=== PATIENT | female | born 1945 | race Caucasian/White ===

== ENCOUNTER 2017-08-10 22:17 | Inpatient (IN) | payer OTHER, MEDICAID ==
[2017-08-11] MEDS: ZOFRAN INJ 4 MG VIAL IVP PRN (00:13)
[2017-08-11 00:20] LABS: BASOPHILS # (AUTO) 0.1 X10^3/uL (0.0-0.1); BASOPHILS % (AUTO) 0.6 % (0.2-1.0); EOSINOPHILS % (AUTO) 0.1 % (0.9-2.9); HEMATOCRIT 34.8 % (36.0-47.0); HEMOGLOBIN 11.8 g/dL (12.0-16.0); LYMPHOCYTES # (AUTO) 0.7 X10^3/uL (1.3-2.9); LYMPHOCYTES % (AUTO) 4.9 % (21.0-51.0); MEAN CORPUSCULAR HEMOGLOBIN 31.1 pg (27.0-34.0); MEAN CORPUSCULAR VOLUME 91.6 fL (80.0-100.0); MEAN PLATELET VOLUME 8.1 fL (7.4-11.0); MONOCYTES # (AUTO) 0.6 x10^3/uL (0.3-0.8); MONOCYTES % (AUTO) 4.7 % (0.0-13.0); NEUTROPHILS % (AUTO) 89.7 % (42.0-75.0); PLATELET COUNT 272 X10^3/uL (150.0-450.0); RED CELL DISTRIBUTION WIDTH 12.5 % (11.6-16.5); WHITE BLOOD COUNT 13.4 X10^3/uL (3.6-10.0)
--- NOTE | 2017-08-11 00:35 | RAD ---
Chest, one-view Indication: Preoperative evaluation for left hip fracture Comparison: None Findings: Heart size is normal. No focal consolidation, significant effusion or pneumothorax is ident ified. No acute osseous abnormality is seen. Impression: No acute cardiopulmonary abnormality. Reported By:
[2017-08-11 01:31] LABS: ALANINE AMINOTRANSFERASE 129 Units/L (12-78); ALBUMIN 3.6 g/dL (3.4-5.0); ALKALINE PHOSPHATASE 67 Units/L (46-116); ASPARTATE AMINO TRANSFERASE 173 Units/L (15-37); BLOOD UREA NITROGEN 16 mg/dL (7-18); CALCIUM 8.7 mg/dL (8.5-10.1); CHLORIDE 97 mmol/L (98-107); COR NA(FOR HYPERGLY) 134 mmol/L (136-145); CREATININE 0.64 mg/dL (0.55-1.02); SODIUM 133 mmol/L (136-145); TOTAL PROTEIN 7.4 g/dL (6.4-8.2); eGFR BLACK RACES > 60 (>60); eGFR NON BLACK RACES > 60 (>60)
[2017-08-11] MEDS: NS 1000 ML 1,000 ML IV SCH ×3 (01:52→18:20)
[2017-08-11] MEDS: TORADOL 15 MG VIAL IVP SCH ×3 (01:53→13:52)
[2017-08-11] MEDS ORDERED: MARCAINE 0.25% INJ ONE (08:28)
[2017-08-11] MEDS ORDERED: XYLOCAINE 1% and EPINEPHRINE 1:100,000 ONE (08:28)
[2017-08-11] MEDS ORDERED: HYDROGEN PEROXIDE 3% ONE (08:28)
[2017-08-11] MEDS ORDERED: BACITRACIN VIAL ONE (08:29)
[2017-08-11] MEDS ORDERED: POLYMYXIN B SULFATE ONE (08:49)
--- NOTE | 2017-08-11 09:08 | RAD ---
HISTORY: Left hip pain status post fall, preop examination Study: Two views left hip Comparison: None Findings: There is a mildly impacted and displaced left transcervical femoral neck fracture with slight varus a ngulation. There is no dislocation. No destructive osseous lesions are seen. IMPRESSION: Transcervical left femoral neck fracture. Reported By:
[2017-08-11] MEDS ORDERED: LR 1000 ML IV 1,000 ML IV ONE (09:18)
[2017-08-11] MEDS ORDERED: ANCEF 1 GM IV PREMIX* 1 GM/50 ML BAG IV ONE (09:18)
[2017-08-11] MEDS ORDERED: FENTANYL INJ 100 mcg ONE (09:19)
[2017-08-11 09:24] VITALS: BMI 21.5
[2017-08-11] MEDS ORDERED: KETALAR ONE (09:25)
[2017-08-11] MEDS ORDERED: SUPRANE IN ONE (09:40)
[2017-08-11] MEDS ORDERED: XYLOCAINE 2 % (PLAIN) ONE (09:40)
[2017-08-11] MEDS ORDERED: NEO-SYNEPHRINE INJ ONE (09:40)
[2017-08-11] MEDS ORDERED: ROBINUL ONE (09:40)
[2017-08-11] MEDS ORDERED: QUELICIN (OR ANECTINE) ONE (09:40)
[2017-08-11] MEDS ORDERED: NEOSTIGMINE INJ ONE (09:40)
[2017-08-11] MEDS ORDERED: DIPRIVAN VIAL ONE (09:40)
[2017-08-11] MEDS ORDERED: VERSED ONE (09:40)
[2017-08-11] MEDS ORDERED: NORCURON INJ 10 MG VIAL ONE (09:40)
[2017-08-11] MEDS ORDERED: EPHEDRINE SULFATE INJ ONE (09:40)
[2017-08-11] MEDS ORDERED: LTA KIT LIDOCAINE 4% ONE (09:40)
--- NOTE | 2017-08-11 09:51 | DR.CONSULT ---
Consult - Consultation for Day of: Date: 08/11/17 - Chief Complaint Chief Complaint: left hip fracture. - Allergies Allergies/Adverse Reactions: Allergies Allergy/AdvReac Type Severity Reaction Status Date / Time No Known Drug Allergies Allergy Verified 08/10/17 23:44 - History of Present Illness History of Present Illness: fall at home yesterday. unable to walk after the fall. was brought to the ER. XR shoed left hip fracture. - Past Surgical History Surgical History: Cholecystectomy, Ortho Surgery - Social History Does patient currently use any type of tobacco product: No Have you used tobacco products in the last 12 months: No Does any household member use tobacco: No Alcohol Use: None Drug Use: None - Physical Exam Vital Signs: Temperature 98.1 F Pulse Rate [Left Brachial] 71 Respiratory Rate 19 Blood Pressure [Left Arm] 135/64 O2 Sat by Pulse Oximetry 96 - Plan Plan: left hip bipolar
[2017-08-11] MEDS ORDERED: FENTANYL INJ 250 mcg ONE (09:52)
[2017-08-11] MEDS ORDERED: DIPRIVAN VIAL 20 ML ONE (10:20)
[2017-08-11] MEDS ORDERED: NS IRRIGATION 1000 ML 1,000 ML with BACITRACIN VIAL 50,000 UNT IR ONE ×2 (10:38)
[2017-08-11] MEDS ORDERED: NS IRRIGATION 3000 ML 3,000 ML with BACITRACIN VIAL 50,000 UNT IR ONE ×4 (10:38)
[2017-08-11] MEDS ORDERED: NS 1000 ML 1,000 ML ONE (11:45)
[2017-08-11] MEDS: BACTROBAN OINT ONE ×3 (12:10→12:53)
[2017-08-11] MEDS: MARCAINE 0.25% INJ ONE ×2 (12:32→12:53)
[2017-08-11] MEDS ORDERED: DILAUDID INJ ONE (12:38)
[2017-08-11] MEDS ORDERED: MORPHINE SULFATE PCA 30 MG IV PRN (13:10)
[2017-08-11] MEDS ORDERED: BENADRYL INJ 50 MG VIAL IVP PRN (13:15)
[2017-08-11] MEDS ORDERED: PHENERGAN INJ 25 MG IVP PRN (13:15)
[2017-08-11] MEDS ORDERED: DILAUDID INJ IVP PRN (13:15)
[2017-08-11] MEDS ORDERED: ZOFRAN INJ 4 MG VIAL IVP PRN (13:15)
--- NOTE | 2017-08-11 14:12 | RAD ---
Examination: Left hip, three views History: Postop Comparison reference 08/11/2017 Findings: Arthroplasty components are now present, related anatomically. There is no evidence for dis location, fracture or hardware abnormality. The expected postsurgical soft tissue changes are observe d. Impression: Interval performance left YESSI, no postoperative complication identified. Reported By:
[2017-08-11] MEDS: ANCEF 1 GM IV PREMIX* 1 GM/50 ML BAG IV SCH ×2 (14:31→21:05)
[2017-08-11] MEDS: LOVENOX INJ 30 MG SYR SC SCH (20:57)
[2017-08-12] MEDS: ANCEF 1 GM IV PREMIX* 1 GM/50 ML BAG IV SCH ×2 (03:39→09:10)
[2017-08-12] MEDS: NS 1000 ML 1,000 ML IV SCH ×2 (05:51→22:29)
[2017-08-12 05:56] LABS: BLOOD UREA NITROGEN 9 mg/dL (7-18); CALCIUM 7.8 mg/dL (8.5-10.1); CARBON DIOXIDE 27.1 mmol/L (21-32); CHLORIDE 100 mmol/L (98-107); CREATININE 0.62 mg/dL (0.55-1.02); SODIUM 133 mmol/L (136-145); eGFR BLACK RACES > 60 (>60); eGFR NON BLACK RACES > 60 (>60)
[2017-08-12 06:14] LABS: BASOPHILS # (AUTO) 0.1 X10^3/uL (0.0-0.1); BASOPHILS % (AUTO) 0.9 % (0.2-1.0); EOSINOPHILS # (AUTO) 0.1 x10^3/uL (0.0-0.2); HEMATOCRIT 31.4 % (36.0-47.0); HEMOGLOBIN 11.1 g/dL (12.0-16.0); LYMPHOCYTES # (AUTO) 0.8 X10^3/uL (1.3-2.9); LYMPHOCYTES % (AUTO) 9.4 % (21.0-51.0); MEAN CORPUSCULAR HEMOGLOBIN 32.7 pg (27.0-34.0); MEAN CORPUSCULAR HGB CONC 35.4 g/dL (33.0-35.0); MEAN CORPUSCULAR VOLUME 92.4 fL (80.0-100.0); MEAN PLATELET VOLUME 8.8 fL (7.4-11.0); MONOCYTES # (AUTO) 0.7 x10^3/uL (0.3-0.8); MONOCYTES % (AUTO) 7.3 % (0.0-13.0); NEUTROPHILS # (AUTO) 7.3 x10^3/uL (2.2-4.8); NEUTROPHILS % (AUTO) 81.4 % (42.0-75.0); PLATELET COUNT 184 X10^3/uL (150.0-450.0); RED CELL DISTRIBUTION WIDTH 12.9 % (11.6-16.5)
--- NOTE | 2017-08-12 07:58 | US ---
HISTORY: Elevated liver function tests Study: Hepatic sonogram Comparison: None Technique: Multiple grayscale sonographic images were obtained. Findings: The liver was normal in size and configuration and without evidence for cyst, mass, or biliary ductal dilatation. The patient appears to be status post cholecystectomy. The common duct measured 4.5 mm. IMPRESSION: No significant abnormality identified Reported By:
[2017-08-12] MEDS: LOVENOX INJ 30 MG SYR SC SCH ×2 (09:11→20:08)
[2017-08-12] MEDS: GLUCOPHAGE XR PO SCH ×2 (10:17→20:09)
[2017-08-12] MEDS: ASPIRIN EC 81 MG PO SCH (10:18)
[2017-08-12] MEDS: ZESTRIL TAB 10 MG PO SCH (10:18)
[2017-08-12] MEDS: NORVASC TAB 5 MG PO SCH (10:18)
[2017-08-12] MEDS: ZOLOFT PO SCH (10:18)
[2017-08-12] MEDS: FLONASE NASAL SPRAY ENOSTRIL SCH ×2 (10:19→20:08)
[2017-08-12] MEDS: ZOFRAN INJ 4 MG VIAL IVP PRN (12:13)
[2017-08-12] MEDS ORDERED: MORPHINE SULFATE INJ 2 MG INJ IVP PRN (13:58)
[2017-08-12] MEDS: PERCOCET TAB 5/325 MG PO PRN (20:09)
[2017-08-13 06:06] LABS: BASOPHILS # (AUTO) 0.1 X10^3/uL (0.0-0.1); BASOPHILS % (AUTO) 0.7 % (0.2-1.0); EOSINOPHILS # (AUTO) 0.1 x10^3/uL (0.0-0.2); EOSINOPHILS % (AUTO) 0.9 % (0.9-2.9); HEMATOCRIT 26.5 % (36.0-47.0); HEMOGLOBIN 9.5 g/dL (12.0-16.0); LYMPHOCYTES # (AUTO) 0.9 X10^3/uL (1.3-2.9); LYMPHOCYTES % (AUTO) 8.4 % (21.0-51.0); MEAN CORPUSCULAR HGB CONC 35.9 g/dL (33.0-35.0); MEAN CORPUSCULAR VOLUME 91.9 fL (80.0-100.0); MEAN PLATELET VOLUME 8.8 fL (7.4-11.0); MONOCYTES # (AUTO) 0.8 x10^3/uL (0.3-0.8); MONOCYTES % (AUTO) 7.7 % (0.0-13.0); NEUTROPHILS # (AUTO) 8.7 x10^3/uL (2.2-4.8); NEUTROPHILS % (AUTO) 82.3 % (42.0-75.0); PLATELET COUNT 159 X10^3/uL (150.0-450.0); RED BLOOD COUNT 2.89 X10^6/uL (3.5-5.4); RED CELL DISTRIBUTION WIDTH 13.1 % (11.6-16.5); WHITE BLOOD COUNT 10.6 X10^3/uL (3.6-10.0)
[2017-08-13 06:26] LABS: BLOOD UREA NITROGEN 9 mg/dL (7-18); CALCIUM 7.8 mg/dL (8.5-10.1); CARBON DIOXIDE 26.7 mmol/L (21-32); CHLORIDE 100 mmol/L (98-107); CREATININE 0.48 mg/dL (0.55-1.02); SODIUM 132 mmol/L (136-145); eGFR BLACK RACES > 60 (>60); eGFR NON BLACK RACES > 60 (>60)
[2017-08-13] MEDS: PERCOCET TAB 5/325 MG PO PRN ×4 (07:11→20:19)
[2017-08-13] MEDS ORDERED: PHARMACY CONSULT - DOSE _____ XX SCH (08:00)
[2017-08-13] MEDS: LOVENOX INJ 30 MG SYR SC SCH ×2 (09:15→20:17)
[2017-08-13] MEDS: ASPIRIN EC 81 MG PO SCH (09:16)
[2017-08-13] MEDS: NORVASC TAB 5 MG PO SCH (09:16)
[2017-08-13] MEDS: ZOLOFT PO SCH (09:17)
[2017-08-13] MEDS: GLUCOPHAGE XR PO SCH ×2 (09:18→20:18)
[2017-08-13] MEDS: ZESTRIL TAB 10 MG PO SCH (09:18)
[2017-08-13] MEDS: FLONASE NASAL SPRAY ENOSTRIL SCH ×2 (09:19→20:18)
[2017-08-13] MEDS ORDERED: SODIUM CHL HYPERTONIC ** 3% ** 500 ML IV ONE (10:00)
[2017-08-13] MEDS: NS 1000 ML 1,000 ML IV SCH (12:32)
--- NOTE | 2017-08-13 13:36 | PCM.PROG ---
Progress Note - Progress Note for Day of Date: 08/13/17 - Subjective Subjective: postop day 2. Afebrile, stable vitals. Hemoglobin reduced to 9.5. Making good progress with physical therapy. Currently on by mouth pain meds for pain control, well controlled. Dressing clean and dry. Surgical incision clean and dry. - Past Medical Family Social History Allergies: Allergies No Known Drug Allergies Allergy (Verified 08/10/17 23:44) - Vital Signs and I&O's Vital Signs: Temperature 98.7 F Pulse Rate [Left Brachial] 86 Pulse Rate 75 Respiratory Rate 20 Blood Pressure [Left Arm] 137/60 Blood Pressure 100/50 O2 Sat by Pulse Oximetry 96 Intake and Output: Intake & Output 08/11/17 08/12/17 08/13/17 08/14/17 11:59 11:59 11:59 11:59 Intake Total 370 9632 2489 Output Total 810 1643 4101 [facility] -[phone] -1947 -510 - Physical Exam Speech Pattern: Clear, Appropriate - Laboratory and Diagnostics Result Diagrams: 08/13/17 05:10 08/13/17 05:10 Labs: Laboratory WBC 10.6 X10^3/uL (3.6-10.0) H 08/13/17 05:10 RBC 2.89 X10^6/uL (3.5-5.4) L 08/13/17 05:10 Hgb 9.5 g/dL (12.0-16.0) L 08/13/17 05:10 Hct 26.5 % (36.0-47.0) L 08/13/17 05:10 MCV 91.9 fL (80.0-100.0) 08/13/17 05:10 MCH 33.0 pg (27.0-34.0) 08/13/17 05:10 MCHC 35.9 g/dL (33.0-35.0) H 08/13/17 05:10 RDW 13.1 % (11.6-16.5) 08/13/17 05:10 Plt Count 159 X10^3/uL (150.0-450.0) 08/13/17 05:10 MPV 8.8 fL (7.4-11.0) 08/13/17 05:10 Neut % 82.3 % (42.0-75.0) H 08/13/17 05:10 Lymph % 8.4 % (21.0-51.0) L 08/13/17 05:10 [place] % 7.7 % (0.0-13.0) 08/13/17 05:10 Eos % 0.9 % (0.9-2.9) 08/13/17 05:10 Baso % 0.7 % (0.2-1.0) 08/13/17 05:10 Neut # 8.7 x10^3/uL (2.2-4.8) H 08/13/17 05:10 Lymph # 0.9 X10^3/uL (1.3-2.9) L 08/13/17 05:10 [place] # 0.8 x10^3/uL (0.3-0.8) 08/13/17 05:10 Eos # 0.1 x10^3/uL (0.0-0.2) 08/13/17 05:10 Baso # 0.1 X10^3/uL (0.0-0.1) 08/13/17 05:10 Absolute Nucleated RBC 0.0 /100WBC 08/13/17 05:10 Sodium 132 mmol/L (136-145) L 08/13/17 05:10 Corrected Sodium TNP 08/13/17 05:10 Potassium 4.0 mmol/L (3.5-5.1) 08/13/17 05:10 Chloride 100 mmol/L (98-107) 08/13/17 05:10 Carbon Dioxide 26.7 mmol/L (21-32) 08/13/17 05:10 BUN 9 mg/dL (7-18) 08/13/17 05:10 Creatinine 0.48 mg/dL (0.55-1.02) L 08/13/17 05:10 Est GFR (MDRD) Af Amer > 60 (>60) 08/13/17 05:10 Est GFR (MDRD) Non-Af > 60 (>60) 08/13/17 05:10 Glucose 90 mg/dL (65-99) 08/13/17 05:10 POC Glucose (mg/dL) 100 mg/dL (65-99) H 08/13/17 11:03 Calcium 7.8 mg/dL (8.5-10.1) L 08/13/17 05:10 Corrected Calcium TNP 08/11/17 00:03 Total Bilirubin 0.50 mg/dL (0.2-1.0) 08/11/17 00:03 AST 173 Units/L (15-37) H 08/11/17 00:03 ALT 129 Units/L (12-78) H 08/11/17 00:03 Alkaline Phosphatase 67 Units/L (46-116) 08/11/17 00:03 Total Protein 7.4 g/dL (6.4-8.2) 08/11/17 00:03 Albumin 3.6 g/dL (3.4-5.0) 08/11/17 00:03 Globulin 3.8 g/dL (2.5-4.5) 08/11/17 00:03 Albumin/Globulin Ratio 0.9 Ratio (1.1-2.1) L 08/11/17 00:03 Blood Type A POSITIVE 08/11/17 00:03 Antibody Screen Negative 08/11/17 00:03 Crossmatch See Detail 08/11/17 00:03 - Plan (1) Fracture, pathologic, femur, neck Status: Acute Qualifiers: Encounter type: subsequent encounter Laterality: left Fracture healing: with routine healing Qualified Code(s): M84.452D - Pathological fracture, left femur, subsequent encounter for fracture with routine healing Plan: 1. Continue physical therapy-complete weightbearing, posterior hip precautions. 2. Pain management with by mouth pain meds. 3. Dr. House might consider transfusion for her low hemoglobin. 4. Plan on discharge. 5. Regular wound check
--- NOTE | 2017-08-13 14:29 | OR.GENERIC ---
Post-Op Note Generic - Post-Op Note Operative Report: preoperative diagnosis-LEFT hip fracture neck of femur, pathological, displaced , osteoporotic, transcervical Postoperative diagnosis-LEFT hip fracture neck of femur, pathological, osteoporotic, displaced, transcervical Procedure-LEFT hip bipolar hemiarthroplasty. Implant used-[place] accolade ii Femur size 3, 127, 41 mm head, +8 offset [id number] female, sustained a LEFT hip fracture after a trivial fall. Seen in the emergency room and diagnosed with a fracture neck of femur , admitted to Medical services and a consult placed. History reviewed, x-rays and CT showed a displaced pathological transcortical fracture involving the LEFT hip fracture neck of femur, no significant sinus of osteoarthritis, fairly advanced osteoporosis with Buenrostro index 4. Natural history treatment discussions done with the family. Keeping in mind of her age and the fracture anatomy and hemiarthroplasty was offered. Patient and the family consented for the procedure. They were taken through the pre-and post operative period and instructions. Procedure was explained in detail to them. Complications including but not limited to infection, neurovascular damage, progression of hip arthritis, LEFT hip pain and stiffness, periprosthetic fracture, loosening of the implant, dislocation, need for further procedures discussed with her as well as the family. They understood and verbalized same. Preop- LEFT and marked in the preoperative holding area. Patient got an epidural block by the anesthesia team. She got the appropriate antibiotic. Consent was again revisited with the patient and the patient signed consent. Procedure-patient was brought to the operating room and placed supine on the operating table. General anesthesia was induced and endotracheal intubation was completed successfully. Patient placed on the RIGHT lateral position on a pegboard. Axillary roll placed, neck maintained in neutral position, pegs placed without any obstruction to the range or the field, SCDs and MEME hose applied on the nonoperative limp, Shrestha catheter placed. LEFT limb was prepped and draped. Surface landmarks marked out, curvilinear incision centeringthe posterioone third of the trochanter. Dissection carried down through the subcutis tissue to expose the gluteus dustin was the tensor fascia patel. Incision made in the tensor fascia patel and gluteus muscles split along the fibers. Charnley retractor placed at this time. Fat surrounding the short rotators released off the short rotators with a blunt sweeping this off the Ray- David. Sciatic nerve identified and was protected throughout the procedure. Retention stitches were placed and the short rotators with Ethibond. Short rotators were released off the posterior femoral cortex, the rotators and the capsule were taken down as a single layer. Hip joint exposed. Fracture site exposed, fracture found to be transcervical displaced, comminuted Femoral head extracted with a corkscrew and measured to be 41. Acetabulum was exposed after completing capsulotomy anteriorly and inferiorly. Blunt retractors were placed posteriorly inferiorly and anteriorly. Acetabulum was inspected, ligamentum teres excised. There is no signs of arthritis noted in the acetabulum. Retractors were taken out around the acetabulum and they were placed in the inferior neck. A double-pronged was used to elevate the femur. The lesser trochanter identified and osteotomy planned about 2 cm from the top of the lesser trochanter. Neck osteotomy completed with the help of oscillating saw. The femoral canal was opened with an opening reamer. An box osteotome was used to lateralize the entry. Sequential broaching started with size 0. Proceeded to size 3 which was found to be a good fit. Calcar planer was used to plane the calcar. Appropriate anteversion was dialed into the proximal 3. Trialing was done with size 41 and 0, +4 and +8 offset. The hip was stable to shuck test, range of motion to her in 110 and external rotation of 45. She had good extension. After trialing we decided to proceed with a size 3, 41 head with +8 offset. Thorough irrigation was done of the wound as well as the intramedullary part of the femur. The definitive prosthesis was driven into the femur. The bipolar head was assembled on the back table. Trunion was cleaned and wiped dry. Bipolar head placed on the trunnion and malleted gently to lock it in place, tested and found to be locked. The hip reduced and again was arranged to found to be very stable. The rotators, capsule, muscle as well as the subcutaneous breast tissue was infiltrated with quarter percent Marcaine with epinephrine. The rotators and the capsule complex was repaired by passing the Ethibond through transosseous sutures and approximated with limp in internal rotation and abduction. The repair was found to be stable even with the range of motion of the hip. The rest of the wound was closed in layers. No drain was used as good hemostasis was maintained. Sterile dressing was applied. An abduction pillow was placed. Patient was woken up from the surgery and extubated successfully. She was afebrile and stable vitals when she was shifted to the PACU. Patient was not of much pain and was able to move her toes and ankle on the operative side. She had good posterior tibial as well as dorsalis pedis pulse. Her limb length was found to be equal. Postoperative x-ray showed a well placed and aligned hip processes. No complications were noted. The family was briefed about the surgery. Again discussed with him about postoperative instructions. Especially posterior hip precautions.
[2017-08-13 22:32] LABS: HEPATITIS A ANTIBODY IGM Negative (Negative)
[2017-08-14] MEDS: NS 1000 ML 1,000 ML IV SCH (02:13)
[2017-08-14 05:44] LABS: BLOOD UREA NITROGEN 17 mg/dL (7-18); CALCIUM 7.9 mg/dL (8.5-10.1); CARBON DIOXIDE 26.7 mmol/L (21-32); CHLORIDE 101 mmol/L (98-107); CREATININE 0.63 mg/dL (0.55-1.02); SODIUM 132 mmol/L (136-145); eGFR BLACK RACES > 60 (>60); eGFR NON BLACK RACES > 60 (>60)
[2017-08-14 06:10] LABS: BASOPHILS # (AUTO) 0.1 X10^3/uL (0.0-0.1); BASOPHILS % (AUTO) 0.9 % (0.2-1.0); EOSINOPHILS # (AUTO) 0.2 x10^3/uL (0.0-0.2); EOSINOPHILS % (AUTO) 2.3 % (0.9-2.9); HEMATOCRIT 21.7 % (36.0-47.0); HEMOGLOBIN 7.7 g/dL (12.0-16.0); LYMPHOCYTES # (AUTO) 0.9 X10^3/uL (1.3-2.9); MEAN CORPUSCULAR HEMOGLOBIN 32.4 pg (27.0-34.0); MEAN CORPUSCULAR HGB CONC 35.4 g/dL (33.0-35.0); MEAN CORPUSCULAR VOLUME 91.6 fL (80.0-100.0); MEAN PLATELET VOLUME 9.1 fL (7.4-11.0); MONOCYTES # (AUTO) 0.6 x10^3/uL (0.3-0.8); MONOCYTES % (AUTO) 6.7 % (0.0-13.0); NEUTROPHILS # (AUTO) 6.8 x10^3/uL (2.2-4.8); NEUTROPHILS % (AUTO) 79.1 % (42.0-75.0); PLATELET COUNT 144 X10^3/uL (150.0-450.0); RED BLOOD COUNT 2.37 X10^6/uL (3.5-5.4); RED CELL DISTRIBUTION WIDTH 12.8 % (11.6-16.5); WHITE BLOOD COUNT 8.6 X10^3/uL (3.6-10.0)
[2017-08-14 06:53] LABS: HEPATITIS B CORE IGM Negative (Negative); HEPATITIS B SURFACE ANTIGEN Negative (Negative)
[2017-08-14 08:06] LABS: PLATELET MORPHOLOGY COMMENT NORMAL (NORMAL)
[2017-08-14] MEDS ORDERED: BUTT CREAM (COMPOUND) TOP PRN (08:30)
[2017-08-14] MEDS: GLUCOPHAGE XR PO SCH ×2 (08:54→21:58)
[2017-08-14] MEDS: NORVASC TAB 5 MG PO SCH (08:54)
[2017-08-14] MEDS: ASPIRIN EC 81 MG PO SCH (08:56)
[2017-08-14] MEDS: ZESTRIL TAB 10 MG PO SCH (08:56)
[2017-08-14] MEDS: LOVENOX INJ 30 MG SYR SC SCH ×2 (08:56→21:58)
[2017-08-14] MEDS: FLONASE NASAL SPRAY ENOSTRIL SCH ×2 (08:58→21:57)
[2017-08-14] MEDS: ZOLOFT PO SCH (08:58)
[2017-08-14] MEDS ORDERED: NS 500 ML IV 500 ML IV ONE ×2 (09:06→13:52)
[2017-08-14] MEDS ORDERED: PHARMACY CONSULT - DOSE _____ XX SCH (10:00)
[2017-08-14] MEDS: PERCOCET TAB 5/325 MG PO PRN (11:48)
[2017-08-14 18:32] LABS: HEMATOCRIT 31.8 % (36.0-47.0); HEMOGLOBIN 11.2 g/dL (12.0-16.0)
[2017-08-14 18:42] LABS: BLOOD UREA NITROGEN 14 mg/dL (7-18); CALCIUM 8.1 mg/dL (8.5-10.1); CARBON DIOXIDE 27.2 mmol/L (21-32); CHLORIDE 100 mmol/L (98-107); CREATININE 0.56 mg/dL (0.55-1.02); SODIUM 133 mmol/L (136-145); eGFR BLACK RACES > 60 (>60); eGFR NON BLACK RACES > 60 (>60)
[2017-08-14] MEDS ORDERED: SODIUM CHL HYPERTONIC ** 3% ** 500 ML IV ONE (20:00)
[2017-08-14] MEDS ORDERED: PHARMACY COMMENT IV SCH (21:30)
[2017-08-15] MEDS: PERCOCET TAB 5/325 MG PO PRN ×4 (02:34→21:04)
[2017-08-15 05:44] LABS: BASOPHILS # (AUTO) 0.1 X10^3/uL (0.0-0.1); BASOPHILS % (AUTO) 1.4 % (0.2-1.0); EOSINOPHILS # (AUTO) 0.2 x10^3/uL (0.0-0.2); EOSINOPHILS % (AUTO) 2.4 % (0.9-2.9); HEMATOCRIT 28.6 % (36.0-47.0); HEMOGLOBIN 10.1 g/dL (12.0-16.0); MEAN CORPUSCULAR HEMOGLOBIN 31.4 pg (27.0-34.0); MEAN CORPUSCULAR HGB CONC 35.3 g/dL (33.0-35.0); MEAN CORPUSCULAR VOLUME 89.1 fL (80.0-100.0); MEAN PLATELET VOLUME 9.1 fL (7.4-11.0); MONOCYTES # (AUTO) 0.7 x10^3/uL (0.3-0.8); NEUTROPHILS # (AUTO) 5.3 x10^3/uL (2.2-4.8); NEUTROPHILS % (AUTO) 73.2 % (42.0-75.0); PLATELET COUNT 193 X10^3/uL (150.0-450.0); RED BLOOD COUNT 3.21 X10^6/uL (3.5-5.4); WHITE BLOOD COUNT 7.3 X10^3/uL (3.6-10.0)
[2017-08-15 06:15] LABS: ALANINE AMINOTRANSFERASE 75 Units/L (12-78); ALBUMIN 1.8 g/dL (3.4-5.0); ALKALINE PHOSPHATASE 62 Units/L (46-116); ASPARTATE AMINO TRANSFERASE 44 Units/L (15-37); BLOOD UREA NITROGEN 11 mg/dL (7-18); CHLORIDE 104 mmol/L (98-107); COR CA(FOR HYPOALB) 9.8 mg/dL (8.5-10.1); CREATININE 0.53 mg/dL (0.55-1.02); SODIUM 138 mmol/L (136-145); TOTAL PROTEIN 5.5 g/dL (6.4-8.2); eGFR BLACK RACES > 60 (>60); eGFR NON BLACK RACES > 60 (>60)
[2017-08-15] MEDS: NS 1000 ML 1,000 ML IV SCH ×2 (06:29→21:03)
[2017-08-15] MEDS: LOVENOX INJ 30 MG SYR SC SCH ×2 (09:30→21:05)
[2017-08-15] MEDS: ZOLOFT PO SCH (09:31)
[2017-08-15] MEDS: GLUCOPHAGE XR PO SCH ×2 (09:32→21:03)
[2017-08-15] MEDS: ASPIRIN EC 81 MG PO SCH (09:33)
[2017-08-15] MEDS: NORVASC TAB 5 MG PO SCH (09:33)
[2017-08-15] MEDS: FLONASE NASAL SPRAY ENOSTRIL SCH ×2 (09:36→21:05)
[2017-08-16 06:00] LABS: ALANINE AMINOTRANSFERASE 103 Units/L (12-78); ALBUMIN 2.1 g/dL (3.4-5.0); ALKALINE PHOSPHATASE 105 Units/L (46-116); ASPARTATE AMINO TRANSFERASE 101 Units/L (15-37); BLOOD UREA NITROGEN 9 mg/dL (7-18); CALCIUM 8.2 mg/dL (8.5-10.1); CARBON DIOXIDE 28.6 mmol/L (21-32); CHLORIDE 99 mmol/L (98-107); COR CA(FOR HYPOALB) 9.7 mg/dL (8.5-10.1); CREATININE 0.53 mg/dL (0.55-1.02); SODIUM 136 mmol/L (136-145); eGFR BLACK RACES > 60 (>60); eGFR NON BLACK RACES > 60 (>60)
[2017-08-16] MEDS ORDERED: K-RIDER 10 MEQ/NS 100 ML 10 MEQ/100 ML BAG IV PRN (06:24)
[2017-08-16] MEDS ORDERED: POTASSIUM CHLORIDE LIQ 20 MEQ UDC PO PRN (06:24)
[2017-08-16] MEDS ORDERED: MAG-OX TAB PO PRN (06:24)
[2017-08-16] MEDS ORDERED: MAGNESIUM SULFATE 1 GM/100 mL PREMIX 1 GM/100 ML BAG IV PRN (06:24)
[2017-08-16] MEDS ORDERED: K-LYTE EFFERVESCENT PO PRN (06:24)
[2017-08-16] MEDS ORDERED: POTASSIUM CHL 40 MEQ/NS 0.45% 500 ML IV PRN (06:24)
[2017-08-16] MEDS ORDERED: POTASSIUM CHL 60 MEQ/NS 0.45% 500 ML IV PRN (06:24)
[2017-08-16 06:26] LABS: BASOPHILS # (AUTO) 0.1 X10^3/uL (0.0-0.1); BASOPHILS % (AUTO) 1.4 % (0.2-1.0); EOSINOPHILS # (AUTO) 0.2 x10^3/uL (0.0-0.2); EOSINOPHILS % (AUTO) 2.6 % (0.9-2.9); HEMATOCRIT 30.3 % (36.0-47.0); HEMOGLOBIN 10.7 g/dL (12.0-16.0); LYMPHOCYTES # (AUTO) 0.6 X10^3/uL (1.3-2.9); LYMPHOCYTES % (AUTO) 9.1 % (21.0-51.0); MEAN CORPUSCULAR HEMOGLOBIN 30.8 pg (27.0-34.0); MEAN CORPUSCULAR HGB CONC 35.2 g/dL (33.0-35.0); MEAN CORPUSCULAR VOLUME 87.7 fL (80.0-100.0); MEAN PLATELET VOLUME 8.7 fL (7.4-11.0); MONOCYTES # (AUTO) 0.7 x10^3/uL (0.3-0.8); MONOCYTES % (AUTO) 10.3 % (0.0-13.0); NEUTROPHILS # (AUTO) 5.3 x10^3/uL (2.2-4.8); NEUTROPHILS % (AUTO) 76.6 % (42.0-75.0); PLATELET COUNT 245 X10^3/uL (150.0-450.0); RED BLOOD COUNT 3.46 X10^6/uL (3.5-5.4); RED CELL DISTRIBUTION WIDTH 14.2 % (11.6-16.5); WHITE BLOOD COUNT 6.9 X10^3/uL (3.6-10.0)
[2017-08-16] MEDS: PERCOCET TAB 5/325 MG PO PRN ×3 (07:31→23:48)
[2017-08-16] MEDS: FLONASE NASAL SPRAY ENOSTRIL SCH ×2 (09:00→20:19)
[2017-08-16] MEDS: LOVENOX INJ 30 MG SYR SC SCH ×2 (09:29→20:19)
[2017-08-16] MEDS: ASPIRIN EC 81 MG PO SCH (09:30)
[2017-08-16] MEDS: NORVASC TAB 5 MG PO SCH (09:30)
[2017-08-16] MEDS: ZOLOFT PO SCH (09:30)
[2017-08-16] MEDS: GLUCOPHAGE XR PO SCH ×2 (09:30→20:19)
[2017-08-17] MEDS: NS 1000 ML 1,000 ML IV SCH ×2 (00:15→06:06)
[2017-08-17] MEDS: PERCOCET TAB 5/325 MG PO PRN ×2 (05:57→17:26)
[2017-08-17 06:28] LABS: BASOPHILS # (AUTO) 0.1 X10^3/uL (0.0-0.1); BASOPHILS % (AUTO) 1.5 % (0.2-1.0); EOSINOPHILS # (AUTO) 0.2 x10^3/uL (0.0-0.2); EOSINOPHILS % (AUTO) 2.2 % (0.9-2.9); HEMATOCRIT 30.9 % (36.0-47.0); HEMOGLOBIN 10.9 g/dL (12.0-16.0); LYMPHOCYTES # (AUTO) 1.3 X10^3/uL (1.3-2.9); MEAN CORPUSCULAR HEMOGLOBIN 31.1 pg (27.0-34.0); MEAN CORPUSCULAR HGB CONC 35.1 g/dL (33.0-35.0); MEAN CORPUSCULAR VOLUME 88.4 fL (80.0-100.0); MEAN PLATELET VOLUME 8.4 fL (7.4-11.0); MONOCYTES # (AUTO) 0.8 x10^3/uL (0.3-0.8); MONOCYTES % (AUTO) 11.3 % (0.0-13.0); NEUTROPHILS # (AUTO) 4.7 x10^3/uL (2.2-4.8); PLATELET COUNT 282 X10^3/uL (150.0-450.0)
[2017-08-17 06:45] LABS: ALANINE AMINOTRANSFERASE 89 Units/L (12-78); ALBUMIN 2.1 g/dL (3.4-5.0); ALKALINE PHOSPHATASE 89 Units/L (46-116); ASPARTATE AMINO TRANSFERASE 74 Units/L (15-37); BLOOD UREA NITROGEN 8 mg/dL (7-18); CALCIUM 8.3 mg/dL (8.5-10.1); CHLORIDE 100 mmol/L (98-107); COR CA(FOR HYPOALB) 9.8 mg/dL (8.5-10.1); CREATININE 0.45 mg/dL (0.55-1.02); MAGNESIUM 1.5 mg/dL (1.7-2.9); SODIUM 137 mmol/L (136-145); eGFR BLACK RACES > 60 (>60); eGFR NON BLACK RACES > 60 (>60)
[2017-08-17] MEDS: LOVENOX INJ 30 MG SYR SC SCH ×2 (09:35→20:52)
[2017-08-17] MEDS: ASPIRIN EC 81 MG PO SCH (09:35)
[2017-08-17] MEDS: NORVASC TAB 5 MG PO SCH (09:35)
[2017-08-17] MEDS: GLUCOPHAGE XR PO SCH ×2 (09:35→20:52)
[2017-08-17] MEDS: FLONASE NASAL SPRAY ENOSTRIL SCH ×2 (09:38→20:53)
[2017-08-17] MEDS: ZOLOFT PO SCH (09:40)
[2017-08-18] MEDS: PERCOCET TAB 5/325 MG PO PRN ×2 (01:56→19:08)
[2017-08-18] MEDS: NS 1000 ML 1,000 ML IV SCH (05:19)
--- NOTE | 2017-08-18 06:12 | RAD ---
Examination: Right hand, three views History: Pain and swelling, no injury Findings: No evidence for fracture or dislocation or unusual calcification. Apparent soft tissue swel ling over the ulnar margin of the wrist. Osteoarthritic changes in IP joints especially the index fin luis. Impression: Soft tissue swelling, no acute osseous abnormality noted. Reported By:
[2017-08-18 06:46] LABS: BASOPHILS # (AUTO) 0.1 X10^3/uL (0.0-0.1); BASOPHILS % (AUTO) 0.8 % (0.2-1.0); EOSINOPHILS # (AUTO) 0.1 x10^3/uL (0.0-0.2); HEMATOCRIT 32.5 % (36.0-47.0); HEMOGLOBIN 11.1 g/dL (12.0-16.0); LYMPHOCYTES # (AUTO) 0.9 X10^3/uL (1.3-2.9); LYMPHOCYTES % (AUTO) 7.1 % (21.0-51.0); MEAN CORPUSCULAR HEMOGLOBIN 30.2 pg (27.0-34.0); MEAN CORPUSCULAR HGB CONC 34.2 g/dL (33.0-35.0); MEAN CORPUSCULAR VOLUME 88.3 fL (80.0-100.0); MEAN PLATELET VOLUME 8.6 fL (7.4-11.0); MONOCYTES % (AUTO) 8.4 % (0.0-13.0); NEUTROPHILS % (AUTO) 82.7 % (42.0-75.0); PLATELET COUNT 347 X10^3/uL (150.0-450.0); RED BLOOD COUNT 3.68 X10^6/uL (3.5-5.4); RED CELL DISTRIBUTION WIDTH 14.2 % (11.6-16.5); WHITE BLOOD COUNT 12.1 X10^3/uL (3.6-10.0)
[2017-08-18 07:11] LABS: ALANINE AMINOTRANSFERASE 99 Units/L (12-78); ALBUMIN 2.4 g/dL (3.4-5.0); ALKALINE PHOSPHATASE 83 Units/L (46-116); ASPARTATE AMINO TRANSFERASE 66 Units/L (15-37); BLOOD UREA NITROGEN 9 mg/dL (7-18); CALCIUM 8.4 mg/dL (8.5-10.1); CARBON DIOXIDE 30.4 mmol/L (21-32); CHLORIDE 98 mmol/L (98-107); COR CA(FOR HYPOALB) 9.7 mg/dL (8.5-10.1); CREATININE 0.42 mg/dL (0.55-1.02); SODIUM 136 mmol/L (136-145); TOTAL PROTEIN 6.4 g/dL (6.4-8.2); eGFR BLACK RACES > 60 (>60); eGFR NON BLACK RACES > 60 (>60)
[2017-08-18] MEDS: NORVASC TAB 5 MG PO SCH (09:39)
[2017-08-18] MEDS: LOVENOX INJ 30 MG SYR SC SCH ×2 (09:39→21:24)
[2017-08-18] MEDS: GLUCOPHAGE XR PO SCH ×2 (09:39→21:24)
[2017-08-18] MEDS: ASPIRIN EC 81 MG PO SCH (09:39)
[2017-08-18] MEDS: ZESTRIL TAB 10 MG PO SCH (09:39)
[2017-08-18] MEDS: ZOLOFT PO SCH (11:10)
[2017-08-18] MEDS: FLONASE NASAL SPRAY ENOSTRIL SCH ×2 (11:10→21:25)
[2017-08-18] MEDS: TEFLARO 600 MG in NS 100 ML IV + SPIKE MINIBAG* 100 ML IV SCH ×2 (18:52→21:24)
[2017-08-18 20:34] LABS: BILIRUBIN,URINE NEGATIVE (NEGATIVE); BLOOD/HEMOGLOBIN,URINE 3+ (NEGATIVE); GLUCOSE, URINE NEGATIVE (NEGATIVE); KETONES,URINE 3+ (NEGATIVE); LEUKOCYTE ESTERASE ,URINE 1+ (NEGATIVE); NITRITES,URINE NEGATIVE (NEGATIVE); PROTEIN,URINE NEGATIVE (NEGATIVE); UROBILINOGEN,URINE 1+ (NORMAL)
[2017-08-18 20:37] LABS: APPEARANCE,URINE CLEAR (CLEAR); COLOR,URINE YELLOW (YELLOW)
[2017-08-18 21:14] LABS: RBC,URINE 0 - 5 /HPF (NEGATIVE); SQUAMOUS EPITHELIAL CELL,UR FEW /HPF (NEGATIVE)
[2017-08-18 21:15] LABS: AMORPHOUS SEDIMENT,UR TRACE /HPF (NEGATIVE); BACTERIA,URINE TRACE /HPF (NEGATIVE)
[2017-08-18] MEDS ORDERED: BENADRYL INJ 50 MG VIAL IVP ONE (22:09)
[2017-08-18] MEDS ORDERED: SOLU-Medrol 125 MG VIAL IVP ONE (22:09)
[2017-08-19] MEDS: CLEOCIN 600 MG IV PREMIX 600 MG/50 ML BAG IV SCH ×3 (00:12→14:44)
[2017-08-19] MEDS: BENADRYL INJ 50 MG VIAL IVP SCH ×2 (06:05→10:13)
[2017-08-19] MEDS: NS 1000 ML 1,000 ML IV SCH (06:06)
[2017-08-19 06:28] LABS: BASOPHILS % (AUTO) 0.3 % (0.2-1.0); HEMATOCRIT 31.7 % (36.0-47.0); LYMPHOCYTES # (AUTO) 0.4 X10^3/uL (1.3-2.9); LYMPHOCYTES % (AUTO) 3.1 % (21.0-51.0); MEAN CORPUSCULAR HEMOGLOBIN 30.8 pg (27.0-34.0); MEAN CORPUSCULAR HGB CONC 34.8 g/dL (33.0-35.0); MEAN CORPUSCULAR VOLUME 88.4 fL (80.0-100.0); MEAN PLATELET VOLUME 8.7 fL (7.4-11.0); MONOCYTES # (AUTO) 0.1 x10^3/uL (0.3-0.8); MONOCYTES % (AUTO) 1.1 % (0.0-13.0); NEUTROPHILS # (AUTO) 11.1 x10^3/uL (2.2-4.8); NEUTROPHILS % (AUTO) 95.5 % (42.0-75.0); PLATELET COUNT 400 X10^3/uL (150.0-450.0); RED BLOOD COUNT 3.58 X10^6/uL (3.5-5.4); RED CELL DISTRIBUTION WIDTH 14.4 % (11.6-16.5); WHITE BLOOD COUNT 11.6 X10^3/uL (3.6-10.0)
[2017-08-19 06:34] LABS: ALANINE AMINOTRANSFERASE 69 Units/L (12-78); ALBUMIN 2.4 g/dL (3.4-5.0); ALKALINE PHOSPHATASE 78 Units/L (46-116); ASPARTATE AMINO TRANSFERASE 35 Units/L (15-37); BLOOD UREA NITROGEN 9 mg/dL (7-18); CALCIUM 8.3 mg/dL (8.5-10.1); CARBON DIOXIDE 27.9 mmol/L (21-32); CHLORIDE 100 mmol/L (98-107); COR CA(FOR HYPOALB) 9.6 mg/dL (8.5-10.1); COR NA(FOR HYPERGLY) 137 mmol/L (136-145); CREATININE 0.45 mg/dL (0.55-1.02); SODIUM 136 mmol/L (136-145); TOTAL PROTEIN 6.7 g/dL (6.4-8.2); eGFR BLACK RACES > 60 (>60); eGFR NON BLACK RACES > 60 (>60)
[2017-08-19 07:16] LABS: PLATELET MORPHOLOGY COMMENT NORMAL (NORMAL)
[2017-08-19] MEDS: ASPIRIN EC 81 MG PO SCH (10:10)
[2017-08-19] MEDS: GLUCOPHAGE XR PO SCH (10:10)
[2017-08-19] MEDS: ZESTRIL TAB 10 MG PO SCH (10:11)
[2017-08-19] MEDS: NORVASC TAB 5 MG PO SCH (10:12)
[2017-08-19] MEDS: ZOLOFT PO SCH (10:12)
[2017-08-19] MEDS: FLONASE NASAL SPRAY ENOSTRIL SCH (10:13)
[2017-08-19] MEDS: LOVENOX INJ 30 MG SYR SC SCH (10:13)
[2017-08-19 12:50] VITALS: BP 125/68
== END 2017-08-19 14:45 | disposition home health service (06) | DRG 536 ==
LOC: MED/SURG 22:17
PROVIDERS: ADMIT Obstetrics & Gynecology Obstetrics; ATTEND Obstetrics & Gynecology Obstetrics
PROC: 30233N1 Transfusion of Nonautologous Red Blood Cells into Peripheral Vein, Percutaneous Approach (ICD-10-PCS; 2017-08-11)
PROC: 0SRS01A Replacement of Left Hip Joint, Femoral Surface with Metal Synthetic Substitute, Uncemented, Open Approach (ICD-10-PCS; principal; 2017-08-13)
PROC: 30233N1 Transfusion of Nonautologous Red Blood Cells into Peripheral Vein, Percutaneous Approach (ICD-10-PCS; 2017-08-14)
PROC: 30233N1 Transfusion of Nonautologous Red Blood Cells into Peripheral Vein, Percutaneous Approach (ICD-10-PCS; 2017-08-14)
DX: S72.032A Displaced midcervical fracture of left femur, initial encounter for closed fracture (principal); W01.0XXA Fall on same level from slipping, tripping and stumbling without subsequent striking against object, initial encounter; Y92.89 Other specified places as the place of occurrence of the external cause; E87.1 Hypo-osmolality and hyponatremia; D62 Acute posthemorrhagic anemia; R94.5 Abnormal results of liver function studies; R26.89 Other abnormalities of gait and mobility; M25.531 Pain in right wrist; I10 Essential (primary) hypertension; E11.65 Type 2 diabetes mellitus with hyperglycemia
CPT/HCPCS: 36415; 36430; 71045; 73130; 73501; 76705; 80048; 80053; 80074; 81001; 83735; 84132; 85014; 85018; 85025; 86850; 86900; 86901; 86922; 93005; 93010; 94640; 94762; 97535; 99100; 99231; A4216; A4222; P9016; S0020; J0077; J0330; J0690; J0712; J1170; J1200; J1650; J2001; J2250; J2271; J2370; J2405; J2710; J2930; J3010; J3490; J7120

== ENCOUNTER → 2017-08-25 | Outpatient (CLI) | payer OTHER, MEDICAID ==
[2017-08-19 12:50] VITALS: BP 125/68
--- NOTE | 2017-08-25 20:10 | RAD ---
HIP RADIOGRAPHS CLINICAL HISTORY: 72-year-old female, postop left hip replacement. COMPARISON: Left hip radiographs 08/11/2017. FINDINGS: Three views of the left hip again demonstrate left total hip arthroplasty with femoral and acetabular components well-seated and congruent without evidence of hardware failure. No radiographic evidence of osseous fracture or malalignment. Expected soft tissue edema with overlying skin leora of the left hip. IMPRESSION: 1. No radiographic evidence of hardware malfunction or failure following left total hip arthroplasty. 2. No radiographic evidence of acute osseous fracture or malalignment of the left hip. Reported By:
== END ==
LOC: RAD 12:17
PROVIDERS: ATTEND Orthopaedic Surgery
DX: S72.032A Displaced midcervical fracture of left femur, initial encounter for closed fracture (principal); X58.XXXA Exposure to other specified factors, initial encounter; Z96.642 Presence of left artificial hip joint
CPT/HCPCS: 73501